=== PATIENT | female | born 1980 | race American Indian/Alaskan Native ===

== ENCOUNTER 2017-05-04 19:26 | Emergency (ER) | payer OTHER ==
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
[2017-05-05] MEDS ORDERED: PERCOCET 5/325 PO ONE (00:32)
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
[2017-05-05] MEDS ORDERED: PERCOCET 5/325 ONE (03:31)
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
[2017-05-05 04:42] VITALS: BP 116/60
== END 2017-05-05 04:41 | disposition home or self-care (01) ==
LOC: ED 19:26
DX: S09.90XA Unspecified injury of head, initial encounter (principal); M54.2 Cervicalgia; M54.5 Low back pain; G44.209 Tension-type headache, unspecified, not intractable; F17.210 Nicotine dependence, cigarettes, uncomplicated; V89.2XXA Person injured in unspecified motor-vehicle accident, traffic, initial encounter; Y93.89 Activity, other specified; Y92.89 Other specified places as the place of occurrence of the external cause; Y99.8 Other external cause status
CPT/HCPCS: 70450; 72125; 72128; 72131; 81025; 99284

== ENCOUNTER 2021-03-15 13:01 | Outpatient (CLI) | payer MEDICAID, OTHER ==
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
== END 2021-03-15 13:02 | disposition home or self-care (01) ==
LOC: VAS 13:01
PROVIDERS: ATTEND Orthopaedic Surgery
DX: S83.92XA Sprain of unspecified site of left knee, initial encounter (principal); X58.XXXA Exposure to other specified factors, initial encounter; Y93.89 Activity, other specified; Y92.89 Other specified places as the place of occurrence of the external cause; Y99.8 Other external cause status

== ENCOUNTER 2021-07-20 17:53 | Emergency (ER) | payer SELFPAY ==
[2021-07-20 20:46] LABS: Alanine Aminotransferase 12 units/L (7-56); Albumin 4.1 g/dL (3.9-5); Blood Urea Nitrogen 9 mg/dL (7-17); Calcium 8.7 mg/dL (8.4-10.2); Hemolysis Index 10
[2021-07-20 20:48] LABS: Eosinophils # (Auto) 0.1 K/mm3 (0.0-0.4); Eosinophils % (Auto) 2.2 % (0.0-4.3); Hematocrit 37.8 % (30.3-42.9); Hemoglobin 11.8 gm/dl (10.1-14.3); Lymphocytes # (Auto) 1.6 K/mm3 (1.2-5.4); Lymphocytes % (Auto) 46.1 % (13.4-35.0); Mean Corpuscular HGB Conc 31 % (30-34); Mean Corpuscular Volume 77 fl (79-97); Monocytes # (Auto) 0.4 K/mm3 (0.0-0.8); Monocytes % (Auto) 10.5 % (0.0-7.3); Platelet Count 199 K/mm3 (140-440); Red Blood Count 4.94 M/mm3 (3.65-5.03); Red Cell Distribution Width 14.9 % (13.2-15.2)
[2021-07-20 20:49] LABS: BUN/Creatinine Ratio 15; Basophils % (Auto) 1.1 % (0.0-1.8)
[2021-07-20 21:46] LABS: Bacteria,Urine 2+ /HPF (Negative); Mucus,Urine 1+ /HPF
[2021-07-20 21:48] LABS: RBC,Urine > 182.0 /HPF (0.0-6.0); WBC,Urine > 182.0 /HPF (0.0-6.0)
[2021-07-20 21:49] LABS: Bilirubin,Urine NEG (Negative); Blood,Urine LG (Negative); Urobilinogen,Urine < 2.0 mg/dL (<2.0)
[2021-07-20 21:50] LABS: Color,Urine Brown (Yellow)
--- NOTE | 2021-07-20 21:54 | Emergency Department Report ---
ED General Adult HPI - General Chief complaint: Dizziness Stated complaint: COVID + Time Seen by Provider: 07/20/21 21:11 Source: patient Mode of arrival: Ambulatory Limitations: No Limitations - History of Present Illness Initial comments: Patient 40-year-old female who presents with dizziness x2 days. Patient states diagnosed with COVID-19 on yesterday. Patient denies shortness of breath there is no fever no chills at this time no vomiting however there is intermittent diarrhea. Patient has tolerated p.o. hydration however symptoms are exacerbated by activity. Symptoms are relieved by nothing tried. Patient states she wants to make sure she is does not have pneumonia. Severity scale (0 -10): 7 - Related Data Previous Rx's Medication Instructions Recorded Last Taken Type Vit-Fe Fumar-FA [ 1 tab PO QDAY #90 tablet 04/01/15 09/20/15 Rx Vitamin] 1 TAB Cyclobenzaprine [Flexeril] 10 mg PO TID PRN #15 tablet 05/05/17 Unknown Rx Ibuprofen [Motrin] 600 mg PO Q8H PRN #15 tablet 05/05/17 Unknown Rx levoFLOXacin [Levaquin TAB] 500 mg PO QDAY 7 Days #7 tablet 07/20/21 Unknown Rx Allergies Allergy/AdvReac Type Severity Reaction Status Date / Time No Known Allergies Allergy Verified 07/20/21 18:22 ED Review of Systems ROS: Stated complaint: COVID + Other details as noted in HPI Constitutional: chills, malaise Eyes: denies: eye pain, eye discharge, vision change ENT: congestion. denies: ear pain, throat pain Respiratory: cough. denies: shortness of breath, wheezing Cardiovascular: denies: chest pain, palpitations Endocrine: no symptoms reported Gastrointestinal: diarrhea. denies: abdominal pain, nausea, vomiting, constipation, melena Genitourinary: denies: urgency, dysuria, frequency, hematuria, discharge Musculoskeletal: denies: back pain, joint swelling, arthralgia Skin: denies: rash, lesions Neurological: vertigo. denies: headache, weakness, numbness, paresthesias, con fusion Psychiatric: denies: anxiety, depression Hematological/Lymphatic: as per HPI ED Past Medical Hx - Past Medical History Hx Hypertension: No Hx Diabetes: No Hx Deep Vein Thrombosis: No Hx Renal Disease: No Hx Sickle Cell Disease: No Hx Seizures: No Hx Asthma: No Hx HIV: No Additional medical history: Bulging disks in neck - Surgical History Additional Surgical History: . 2 knee surgeries - Social History Smoking Status: Current Some Day Smoker Substance Use Type: Alcohol, Marijuana - Medications Home Medications: Home Medications Medication Instructions Recorded Confirmed Last Taken Type Vit-Fe Fumar-FA [ 1 tab PO QDAY #90 tablet 04/01/15 09/20/15 09/20/15 Rx Vitamin] 1 TAB Cyclobenzaprine [Flexeril] 10 mg PO TID PRN #15 tablet 05/05/17 Unknown Rx Ibuprofen [Motrin] 600 mg PO Q8H PRN #15 tablet 05/05/17 Unknown Rx levoFLOXacin [Levaquin TAB] 500 mg PO QDAY 7 Days #7 tablet 07/20/21 Unknown Rx ED Physical Exam - General Limitations: No Limitations General appearance: alert, in no apparent distress - Head Head exam: Present: normocephalic, normal inspection - Eye Eye exam: Present: PERRL, EOMI. Absent: conjunctival injection, nystagmus Pupils: Present: normal accommodation - ENT ENT exam: Present: normal orophraynx, mucous membranes moist, TM's normal bilaterally, normal external ear exam - Neck Neck exam: Present: normal inspection, full ROM. Absent: tenderness, lymphadenopathy - Respiratory Respiratory exam: Present: normal lung sounds bilaterally. Absent: respiratory distress, wheezes, rales, rhonchi, stridor, chest wall tenderness - Cardiovascular Cardiovascular Exam: Present: regular rate, normal rhythm, normal heart sounds. Absent: systolic murmur, diastolic murmur, rubs, gallop - GI/Abdominal GI/Abdominal exam: Present: soft, normal bowel sounds. Absent: distended, tenderness, guarding, rebound, rigid, bruit, hernia - Rectal Rectal exam: Present: deferred - Extremities Exam Extremities exam: Present: normal inspection, full ROM, normal capillary refill - Back Exam Back exam: Present: normal inspection, full ROM. Absent: CVA tenderness (R), CVA tenderness (L) - Neurological Exam Neurological exam: Present: alert, oriented X3, CN II-XII intact, normal gait - Expanded Neurological Exam Expanded Patient oriented to: Present: person, place, time Speech: Present: fluid speech Motor strength exam: RUE: 5, LUE: 5, RLE: 5, LLE: 5 Best Eye Response (New): (4) open spontaneously Best Motor Response ([place]): (6) obeys commands Best Verbal Response ([place]): (5) oriented [place] Total: 15 - Psychiatric Psychiatric exam: Present: normal affect, normal mood ED Course Vital Signs 07/20/21 18:22 Temperature 98.5 F Pulse Rate 58 L Respiratory 18 Rate Blood Pressure 102/55 [Right] O2 Sat by Pulse 98 Oximetry ED Medical Decision Making - Lab Data Result diagrams: 07/20/21 20:10 07/20/21 20:10 Labs 07/20/21 07/20/21 07/20/21 20:10 20:10 20:10 WBC 3.6 L RBC 4.94 Hgb 11.8 Hct 37.8 MCV 77 L MCH 24 L MCHC 31 RDW 14.9 Plt Count 199 Lymph % (Auto) 46.1 H [place] % (Auto) 10.5 H Eos % (Auto) 2.2 Baso % (Auto) 1.1 Lymph # (Auto) 1.6 [place] # (Auto) 0.4 Eos # (Auto) 0.1 Baso # (Auto) 0.0 Seg Neutrophils % 40.1 Seg Neutrophils # 1.4 L Sodium 139 Potassium 4.5 Chloride 102.6 Carbon Dioxide 25 Anion Gap 16 BUN 9 Creatinine 0.6 Estimated GFR > 60 BUN/Creatinine Ratio 15 Glucose 102 H Calcium 8.7 Total Bilirubin < 0.20 AST 17 ALT 12 Alkaline Phosphatase 67 Total Protein 6.4 Albumin 4.1 Albumin/Globulin Ratio 1.8 HCG, Qual Negative Urine Color Urine Turbidity Urine pH Ur Specific [place] Urine Protein Urine Glucose (UA) Urine Ketones Urine Blood Urine Nitrite Ur Reducing Substances Urine Bilirubin Urine Ictotest Urine Urobilinogen Ur Leukocyte Esterase Urine WBC (Auto) Urine RBC (Auto) Urine Bacteria (Auto) Urine WBC Clumps Urine Mucus 07/20/21 21:26 WBC RBC Hgb Hct MCV MCH MCHC RDW Plt Count Lymph % (Auto) [place] % (Auto) Eos % (Auto) Baso % (Auto) Lymph # (Auto) [place] # (Auto) Eos # (Auto) Baso # (Auto) Seg Neutrophils % Seg Neutrophils # Sodium Potassium Chloride Carbon Dioxide Anion Gap BUN Creatinine Estimated GFR BUN/Creatinine Ratio Glucose Calcium Total Bilirubin AST ALT Alkaline Phosphatase Total Protein Albumin Albumin/Globulin Ratio HCG, Qual Urine Color Brown Urine Turbidity Slightly-cloudy Urine pH 6.0 Ur Specific [place] 1.012 Urine Protein 30 mg/dl Urine Glucose (UA) Neg Urine Ketones Neg Urine Blood Lg Urine Nitrite Pos Ur Reducing Substances Not Reportable Urine Bilirubin Neg Urine Ictotest Not Reportable Urine Urobilinogen < 2.0 Ur Leukocyte Esterase Neg Urine WBC (Auto) > 182.0 H Urine RBC (Auto) > 182.0 Urine Bacteria (Auto) 2+ Urine WBC Clumps 3+ Urine Mucus 1+ - Radiology Data Radiology results: report reviewed, image reviewed CT ABDOMEN AND PELVIS WITHOUT CONTRAST INDICATION / CLINICAL INFORMATION: r/o renal stones. TECHNIQUE: Axial CT images were obtained through the abdomen and pelvis without IV contrast. All CT scans at this location are performed using CT dose reduction for ALARA by means of automated exposure control. COMPARISON: None available. FINDINGS: LOWER CHEST: No significant abnormality LIVER: 2.3 cm ill-defined hypoattenuating lesion within the inferior right hepatic lobe may reflect a hemangioma. GALLBLADDER/BILIARY TREE: No significant abnormality PANCREAS: No significant abnormality SPLEEN: No significant abnormality ADRENALS: No significant abnormality KIDNEYS / URETER: There is mild nonspecific indistinctness at the right renal hilum. No ureteral stone or hydronephrosis. URINARY BLADDER: Bladder is partially decompressed, though grossly unremarkable. REPRODUCTIVE ORGANS: No significant abnormality STOMACH / BOWEL: Small bowel is normal in caliber. The colon is unremarkable. The appendix is normal in caliber. LYMPH NODES: No significant adenopathy. VASCULATURE: No significant abnormality. OTHER: No free air, free fluid, or focal fluid collection is identified. SKELETAL SYSTEM: Degenerative changes of the spine. No acute osseous findings. IMPRESSION: 1. Mild indistinctness at the right renal hilum. This is nonspecific though may be seen with urinary tract infection. No ureteral stone or hydronephrosis. 2. Otherwise, no acute abnormality. 3. 2.3 cm indeterminate right hepatic lesion. This may reflect a hemangioma. If definitive characterization is desired, consider further evaluation with nonemergent CT or MRI with liver mass protocol. Signer Name: Sang Escobar MD Signed: 07/20/2021 11:41 PM Workstation Name: [id number] - Medical Decision Making CT scan no renal stones no pyelonephritis diagnosis is UTI, will be DC'd home wi th prescriptions, patient will follow-up with your doctor in 2 to 3 days. Patient will continue to hydrate as directed. Patient verbalized agreement and understanding with discharge plan. Will be DC'd home in stable condition at this time. Critical care attestation.: If time is entered above; I have spent that time in minutes in the direct care of this critically ill patient, excluding procedure time. ED Disposition Clinical Impression: Cystitis Disposition: 01 HOME / SELF CARE / HOMELESS Is pt being admited?: No Does the pt Need Aspirin: No Condition: Stable Instructions: Urinary Tract Infection, Adult Additional Instructions: Take medications as prescribed, hydrate as directed. Follow-up with your doctor in 2 to 3 days. Return return to emergency department should symptoms worsen Prescriptions: levoFLOXacin [Levaquin TAB] 500 mg PO QDAY 7 Days #7 tablet Referrals: MICHAEL BLAIR MD [Staff Physician] - 3-5 Days Forms: Work/School Release Form(ED) Time of Disposition: 23:54
[2021-07-20] MEDS ORDERED: KETOROLAC 30 MG/1 ML INJ IV ONE (22:27)
[2021-07-20] MEDS ORDERED: cefTRIAXone/NS 1 GM/50 ML 1 GM/50 ML BAG IV ONE (22:27)
[2021-07-20] MEDS ORDERED: ONDANSETRON 4 MG/2 ML INJ IV ONE (22:27)
--- NOTE | 2021-07-20 23:45 | Cat Scan Report ---
CT ABDOMEN AND PELVIS WITHOUT CONTRAST INDICATION / CLINICAL INFORMATION: r/o renal stones. TECHNIQUE: Axial CT images were obtained through the abdomen and pelvis without IV contrast. All CT scans at this location are performed using CT dose reduction for ALARA by means of automated exposure control. COMPARISON: None available. FINDINGS: LOWER CHEST: No significant abnormality LIVER: 2.3 cm ill-defined hypoattenuating lesion within the inferior right hepatic lobe may reflect a hemangioma. GALLBLADDER/BILIARY TREE: No significant abnormality PANCREAS: No significant abnormality SPLEEN: No significant abnormality ADRENALS: No significant abnormality KIDNEYS / URETER: There is mild nonspecific indistinctness at the right renal hilum. No ureteral ston e or hydronephrosis. URINARY BLADDER: Bladder is partially decompressed, though grossly unremarkable. REPRODUCTIVE ORGANS: No significant abnormality STOMACH / BOWEL: Small bowel is normal in caliber. The colon is unremarkable. The appendix is normal in caliber. LYMPH NODES: No significant adenopathy. VASCULATURE: No significant abnormality. OTHER: No free air, free fluid, or focal fluid collection is identified. SKELETAL SYSTEM: Degenerative changes of the spine. No acute osseous findings. IMPRESSION: 1. Mild indistinctness at the right renal hilum. This is nonspecific though may be seen with urinary tract infection. No ureteral stone or hydronephrosis. 2. Otherwise, no acute abnormality. 3. 2.3 cm indeterminate right hepatic lesion. This may reflect a hemangioma. If definitive characteri zation is desired, consider further evaluation with nonemergent CT or MRI with liver mass protocol. Signer Name: Sang Escobar MD Signed: 07/20/2021 11:41 PM Workstation Name: [id number]
[2021-07-21 00:08] VITALS: BP 113/68
--- NOTE | 2021-07-21 10:54 | Electrocardiograph Report ---
[facility] Test Date: 2021-07-20 Test Time: 21:17:36 Pat Name: NICK PADILLA Department: Room: Gender: F [employer]: : 1980 Requested By: ROBERTO العراقي Order Number: [id number] Reading MD: Gordon West Measurements Intervals Apollo Rate: 54 P: 51 WY: 160 QRS: 67 QRSD: 74 T: 34 QT: 414 QTc: 391 Interpretive Statements Sinus bradycardia Probable left atrial enlargement RSR' IN V1 OR V2, PROBABLY NORMAL VARIANT No previous ECG available for comparison Electronically Signed On 07-21-2021 10:54:06 EST by Gordon West
== END 2021-07-21 00:08 | disposition home or self-care (01) ==
LOC: ED 17:53
DX: N30.90 Cystitis, unspecified without hematuria (principal); F17.200 Nicotine dependence, unspecified, uncomplicated; F12.90 Cannabis use, unspecified, uncomplicated; Z72.89 Other problems related to lifestyle; Z79.899 Other long term (current) drug therapy
CPT/HCPCS: 36415; 74176; 80053; 81001; 84703; 85025; 93005; 96365; 96375; 99284; J0696; J1885; J2405